=== PATIENT | male | born 1945 ===

== ENCOUNTER 2020-08-25 04:41 | Day surgery (SDC) | payer BC ==
[2020-08-24 12:08] VITALS: BMI 26.1
[2020-08-25 12:31] VITALS: BP 139/48; PULSE 52; TEMP 97.8
== END 2020-08-25 11:30 | disposition home or self-care (01) ==
LOC: JASU-ENDO 04:41
PROVIDERS: ATTEND Internal Medicine Gastroenterology
PROC: 0DBC8ZX Excision of Ileocecal Valve, Via Natural or Artificial Opening Endoscopic, Diagnostic (ICD-10-PCS; 2020-08-25)
PROC: 0DB98ZX Excision of Duodenum, Via Natural or Artificial Opening Endoscopic, Diagnostic (ICD-10-PCS; 2020-08-25)
PROC: 0DB78ZX Excision of Stomach, Pylorus, Via Natural or Artificial Opening Endoscopic, Diagnostic (ICD-10-PCS; 2020-08-25)
PROC: 0DBN8ZX Excision of Sigmoid Colon, Via Natural or Artificial Opening Endoscopic, Diagnostic (ICD-10-PCS; principal; 2020-08-25 10:00)
DX: Z12.11 Encounter for screening for malignant neoplasm of colon (principal); D50.9 Iron deficiency anemia, unspecified; D12.5 Benign neoplasm of sigmoid colon; D17.5 Benign lipomatous neoplasm of intra-abdominal organs; K29.50 Unspecified chronic gastritis without bleeding; K64.8 Other hemorrhoids
CPT/HCPCS: 82962